=== PATIENT | female | born 1940 | race Native Hawaiian/Other Pacific Islander ===

== ENCOUNTER 2017-02-10 22:09 | Emergency (ER) | payer MEDICARE ==
[2017-02-10] MEDS ORDERED: ACETAMINOPHEN 325 MG TABLET PO STA (23:49)
[2017-02-10] MEDS ORDERED: ACETAMINOPHEN 325 MG TABLET PO ONE (23:51)
== END 2017-02-10 23:58 | disposition home or self-care (01) ==
DX: S93.491A Sprain of other ligament of right ankle, initial encounter (principal); W01.0XXA Fall on same level from slipping, tripping and stumbling without subsequent striking against object, initial encounter; Y92.488 Other paved roadways as the place of occurrence of the external cause; I10 Essential (primary) hypertension; E78.00 Pure hypercholesterolemia, unspecified; I25.10 Atherosclerotic heart disease of native coronary artery without angina pectoris; Z79.82 Long term (current) use of aspirin
CPT/HCPCS: 73610; 99282; A9270

== ENCOUNTER 2017-09-29 19:50 | Emergency (ER) | payer MEDICARE ==
[2017-09-29 20:07] VITALS: BP 158/79
[2017-09-29] MEDS ORDERED: LIDOCAINE 2%-EPI 1:100000 20 ML MDV ONE (20:55)
--- NOTE | 2017-09-29 21:39 | CT Preliminary Report ---
Exam: CT HEAD W/O IMPRESSION: Stable age-related cortical atrophic changes without evidence of acute intracranial abnor mality. [facility] SITE ID: [id number]
--- NOTE | 2017-09-29 21:41 | CT Report ---
EXAM: CT HEAD EXAM DATE: 09/29/2017 09:23 PM. CLINICAL HISTORY: Fall. Dementia. Head lac. Neck hardware. COMPARISON: 03/03/2016. TECHNIQUE: Multiaxial CT images were obtained from the foramen magnum to the vertex. IV contrast: Non e. Reformats: Coronal. In accordance with CT protocol optimization, one or more of the following dose reduction techniques w ere utilized for this exam: automated exposure control, adjustment of mA and/or KV based on patient s ize, or use of iterative reconstructive technique. FINDINGS: Parenchyma: No intraparenchymal hemorrhage. No evidence of mass, midline shift, or CT findings of acu te infarction. Iyer-white differentiation is distinct. Stable mild chronic microangiopathic white mat ter changes are evident. Extraaxial Spaces: Normal for age. No subdural or epidural collections identified. Ventricles: The ventricles and cortical sulci are enlarged, consistent with age-related tissue loss. Sinuses and orbits: Mucosal thickening in the paranasal sinuses. No air-fluid levels. The mastoids ar e clear. Bones: No evidence of fracture or calvarial defect. Other: None. IMPRESSION: Stable age-related cortical atrophic changes without evidence of acute intracranial abnor mality. [facility] Referring Provider Line: [phone] SITE ID: [id number]
--- NOTE | 2017-09-29 21:45 | CT Preliminary Report ---
Exam: CT CERVICAL SPINE W/O IMPRESSION: 1. No acute cervical spine abnormalities. 2. 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 [facility] SITE ID: [id number]
--- NOTE | 2017-09-29 21:48 | CT Report ---
EXAM: CT CERVICAL SPINE WITHOUT CONTRAST DATE: 09/29/2017 09:23 PM. HISTORY: Fall. Dementia. Head lac. Neck hardware.. COMPARISONS: 10/03/2007. TECHNIQUE: Thin-section axial images were acquired of the cervical spine without contrast. Post-proce ssing: Coronal and sagittal reformats. Other: None. In accordance with CT protocol optimization, one or more of the following dose reduction techniques w ere utilized for this exam: automated exposure control, adjustment of mA and/or KV based on patient s ize, or use of iterative reconstructive technique. FINDINGS: Alignment: Normal. No scoliosis or spondylolisthesis. Bones: acute traumatic or destructive bone abnormalities. Stable advanced calcification of the shift lab technician ior longitudinal ligament, C3 to C7, with interval laminectomies and posterior fusion from C2-T2. Interspace Levels/Facets: Stable disk spaces and interval fusion across multiple facets. Musculature: Normal. No fatty atrophy. Other: The paravertebral and prevertebral soft tissues are normal. IMPRESSION: 1. No acute cervical spine abnormalities. 2. 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 [facility] Referring Provider Line: [phone] SITE ID: [id number]
--- NOTE | 2017-09-29 21:52 | ED Physician Documentation ---
PD HPI HEAD INJURY - Stated complaint Stated Complaint: LAC TO FOREHEAD - Chief complaint Chief Complaint: Laceration - History obtained from History obtained from: Patient, Family - History of Present Illness Mechanism of head injury: Fell Where head injury occurred: Home Timing - onset: Today Location of injury: Right, Front Quality of pain: Pain, Aching Associated symptoms: No: LOC, Nausea / vomiting Contributing factors: No: Intoxicated Similar symptoms before: Has not had sx before Recently seen: Not recently seen - Additional information Additional information: Patient is a 77 year old female with a history of dementia who is presenting to the emergency department for fall and head laceration. According to the son, the patient stood up and then fell, hitting her head on way down. Patient is on aspirin and had had spinal fusion in the past. Review of Systems Unable to obtain: Dementia PD PAST MEDICAL HISTORY - Past Medical History Cardiovascular: Hypertension, High cholesterol, Coronary artery disease - Past Surgical History Past Surgical History: Yes Ortho: Spine surgery Cardiovascular: Coronary stent - Present Medications Home Medications: Ambulatory Orders Medication Instructions Recorded Confirmed Aspirin [Aspir 81] 81 mg PO DAILY 08/13/14 08/13/14 Metoprolol Tartrate 12.5 mg PO BID 08/13/14 08/13/14 Simvastatin 40 mg PO DAILY 08/13/14 08/13/14 - Allergies Allergies/Adverse Reactions: Allergies Allergy/AdvReac Type Severity Reaction Status Date / Time No Known Drug Allergies Allergy Verified 09/29/17 20:07 - Social History Does the pt smoke?: No Smoking Status: Never smoker Does the pt drink ETOH?: No Does the pt have substance abuse?: No - Immunizations Immunizations are current?: Yes PD ED PE NORMAL - Vitals Vital signs reviewed: Yes - General General: No acute distress - HEENT HEENT: PERRL, Moist mucous membranes, Dentition benign - Neck Neck: Supple, no meningeal sign, Other (prior surgical scars) - Cardiac Cardiac: RRR, No murmur - Respiratory Respiratory: No respiratory distress - Abdomen Abdomen: Non distended - Extremities Extremities: No deformity, No tenderness to palpate - Neuro Neuro: No motor deficit, No sensory deficit Eye Opening: Spontaneous Motor: Obeys Commands Verbal: Confused GCS Score: 14 - Psych Psych: Normal mood PD ED PE EXPANDED - HEENT HEENT: Head injury (2cm laceration on right forehead) Results - Vitals Vitals: Vital Signs - 24 hr 09/29/17 20:03 Temperature 36.7 C Heart Rate 73 Respiratory 20 Rate Blood Pressure 158/79 H O2 Saturation 96 Oxygen O2 Source Room air - Rads (name of study) ct head Radiology: Final report received (no acute intracranial pathology) ct cervical spine Radiology: Final report received (no acute process), See rad report Procedures - Laceration (location) right face Length in cm: 2 Wound type: Linear Neurovascular status: Sensory intact, Vascular intact Anesthesia: Lidocaine 2% with epi Wound Preparation: Irrigated copiously NS Skin layer closure: Prolene, Size #-0 - enter number (6), Sutures - enter # (3) Other: Patient tolerated well, No complications, Tetanus UTD Complexity: Simple PD MEDICAL DECISION MAKING - ED course Complexity details: reviewed old records, reviewed results, re-evaluated patient , considered differential, d/w patient, d/w family ED course: Patient was seen and examined at bedside. Imaging was ordered and lac was repaired. Patient was sent for imaging. when patient returned the results were reviewed. there were no acute fractures or dislocations or acute intracranial pathology. Patient required no further work up and was stable for discharge with outpatient follow up. Departure - Departure Disposition: 01 Home, Self Care Clinical Impression: Laceration Condition: Good Instructions: ED Laceration Facial Sutr Tape Follow-Up: Sarath Viramontes MD [Primary Care Provider] - Within 1 week Comments: Your diagnostics today were within normal limits. there was no fracture, dislocation or acute intracranial pathology. You will need to keep the lacerations clean and dry. You can apply topical antibiotics. you should follow up with your doctor in a week for suture removal. You can give motrin or tylenol as needed for pain. You may return to the emergency department at any time for new, worsening or uncontrollable symptoms. Discharge Date/Time: 09/29/17 22:09
== END 2017-09-29 22:09 | disposition home or self-care (01) ==
LOC: ED 19:50
DX: S01.81XA Laceration without foreign body of other part of head, initial encounter (principal); W18.30XA Fall on same level, unspecified, initial encounter; W22.09XA Striking against other stationary object, initial encounter; Y93.89 Activity, other specified; Y92.009 Unspecified place in unspecified non-institutional (private) residence as the place of occurrence of the external cause; F03.90 Unspecified dementia, unspecified severity, without behavioral disturbance, psychotic disturbance, mood disturbance, and anxiety; I25.10 Atherosclerotic heart disease of native coronary artery without angina pectoris; I10 Essential (primary) hypertension; Z95.5 Presence of coronary angioplasty implant and graft; Z79.82 Long term (current) use of aspirin
CPT/HCPCS: 12011; 70450; 72125; 99283; 99284

== ENCOUNTER 2017-12-24 21:53 | Emergency (ER) | payer MEDICARE ==
--- NOTE | 2017-12-24 22:14 | ED Physician Documentation ---
History of Present Illness - Stated complaint Stated Complaint: GLF-L SHOULDER PX - Chief complaint Chief Complaint: General - History obtained from History obtained from: Family (daughter in law) - History of Present Illness Timing: Today (Demented 77 yo usually uses walker. Unwitnessed fall today. Unclear if any injuries, poss arm pain?) Review of Systems Unable to obtain: Dementia PD PAST MEDICAL HISTORY - Past Medical History Past Medical History: Yes Cardiovascular: Hypertension, High cholesterol, Coronary artery disease Respiratory: None Neuro: CVA Endocrine/Autoimmune: None GI: None SPOUT LINER: None : None HEENT: Other Psych: None Musculoskeletal: None Derm: None Other Past Medical History: USES WALKER W/ AMBULATION... - Past Surgical History Past Surgical History: Yes Ortho: Spine surgery Cardiovascular: Coronary stent - Present Medications Home Medications: Ambulatory Orders Medication Instructions Recorded Confirmed Aspirin [Aspir 81] 81 mg PO DAILY 08/13/14 08/13/14 Metoprolol Tartrate 12.5 mg PO BID 08/13/14 08/13/14 Simvastatin 40 mg PO DAILY 08/13/14 08/13/14 - Allergies Allergies/Adverse Reactions: Allergies Allergy/AdvReac Type Severity Reaction Status Date / Time No Known Drug Allergies Allergy Verified 12/24/17 22:06 - Social History Does the pt smoke?: No Smoking Status: Never smoker Does the pt drink ETOH?: No Does the pt have substance abuse?: No - Immunizations Immunizations are current?: Yes - POLST Patient has POLST: No PD ED PE NORMAL - General General: Other (She is alert and cooperative, but basically nonverbal, she does follow commands.) - HEENT HEENT: PERRL, EOMI - Neck Neck: Other (Mild upper C-spine tenderness and I do see her grab her neck once looking like she is in pain) - Cardiac Cardiac: RRR, No murmur - Respiratory Respiratory: No respiratory distress, Clear bilaterally - Abdomen Abdomen: Non tender - Back Back: No CVA TTP, No spinal TTP - Extremities Extremities: Other (I am able to range both of her shoulders elbows and wrists without any pain, I able to ambulate her, she has a slow gait but in no apparent pain.) - Neuro Neuro: No motor deficit Eye Opening: Spontaneous Motor: Obeys Commands Verbal: Incomprehensible GCS Score: 12 Results - Vitals Vitals: Vital Signs - 24 hr 02/09/18 22:02 Temperature 36.2 C L Heart Rate 96 Respiratory 17 Rate Blood Pressure 144/94 H O2 Saturation 97 Oxygen O2 Source Room air - Rads (name of study) Ct Head Radiology: EMP read contemporaneously (atrophy NAD) Ct C spine Radiology: EMP read contemporaneously (posterior fusion., NAD) B 1v [facility] Radiology: EMP read contemporaneously (NAD) PD MEDICAL DECISION MAKING - ED course ED course: The patient and family were counseled as to the diagnosis and need for follow- up. I counseled the patient with regard to signs and symptoms that would necessitate an urgent reevaluation in the emergency department. They understand they are welcome to return at any time if worse or if not improving as expected. This document was made in part using voice recognition software. While efforts are made to proofread this documents, sound alike and grammatical errors may occur. Departure - Departure Disposition: 01 Home, Self Care Clinical Impression: Neck pain Fall Qualifiers: Encounter type: initial encounter Qualified Code(s): W19.XXXA - Unspecified fall, initial encounter Dementia Qualifiers: Dementia type: unspecified type Dementia behavioral disturbance: without behavioral disturbance Qualified Code(s): F03.90 - Unspecified dementia without behavioral disturbance Right shoulder strain Qualifiers: Encounter type: initial encounter Qualified Code(s): S46.911A - Strain of unspecified muscle, fascia and tendon at shoulder and upper arm level, right arm , initial encounter Left shoulder strain Qualifiers: Encounter type: initial encounter Qualified Code(s): S46.912A - Strain of unspecified muscle, fascia and tendon at shoulder and upper arm level, left arm , initial encounter Condition: Good Record reviewed to determine appropriate education?: Yes Instructions: ED Dementia Caregiver Support Comments: Recheck with your physician in 1 week if any areas are persistently painful, return if worse, Tylenol as needed for pain. Your blood pressure was elevated today on check into the emergency department. This does not mean that you have hypertension, it is a common phenomenon to come to the emergency department and have elevated blood pressure. I recommend that you see your primary care physician within the week to have it rechecked when you are feeling better.
--- NOTE | 2017-12-24 23:10 | CT Preliminary Report ---
Exam: CT HEAD W/O IMPRESSION: Generalized age-related cortical atrophic changes without evidence of acute intracranial abnormality. [facility] SITE ID: [id number]
--- NOTE | 2017-12-24 23:13 | CT Report ---
EXAM: CT HEAD EXAM DATE: 12/24/2017 10:48 PM. CLINICAL HISTORY: Neck pain, fall. COMPARISON: Brain CT from 09/29/2017. TECHNIQUE: Multiaxial CT images were obtained from the foramen magnum to the vertex. Reformats: Coron al. IV contrast: None. In accordance with CT protocol optimization, one or more of the following dose reduction techniques w ere utilized for this exam: automated exposure control, adjustment of mA and/or KV based on patient s ize, or use of iterative reconstructive technique. FINDINGS: Parenchyma: No intraparenchymal hemorrhage. No evidence of mass, midline shift, or CT findings of acu te infarction. Iyer-white differentiation is distinct. Mild diffuse chronic microangiopathic white ma tter changes are evident. Extraaxial Spaces: No acute subdural or epidural collections identified. Ventricles: The ventricles and cortical sulci are moderately enlarged, consistent with age-related ti ssue loss. Sinuses and orbits: A new small air-fluid is suggested in the right sphenoid sinus. The orbits and ma stoid sinuses are unremarkable. Bones: No evidence of fracture or calvarial defect. Other: Mild intracranial atherosclerosis is noted. IMPRESSION: Generalized age-related cortical atrophic changes without evidence of acute intracranial abnormality. [facility] Referring Provider Line: [phone] SITE ID: [id number]
--- NOTE | 2017-12-24 23:18 | XRAY Preliminary Report ---
Exam: XR SHOULDER 1 VIEW BILAT IMPRESSION: 1. No dislocation or acute fracture. Comment: NONSTANDARD TECHNIQUE FOR EVALUATION OF SHOULDER PAIN AFTER FALL. [facility] SITE ID: [id number]
--- NOTE | 2017-12-24 23:22 | XRAY Report ---
Bilateral Shoulder Radiography EXAM DATE: 12/24/2017 10:57 PM. CLINICAL HISTORY: Shoulder pain. COMPARISON: None. TECHNIQUE: 1 views each. FINDINGS: Right: Bones: Normal. No fracture or bone lesion. Joints: No dislocation on this single view radiograph. Normal alignment of the right acromioclavicular and glenohumeral joint. Right acromioclavicular joint arthritis. Soft tissues: The visualized hemithorax is unremarkable. No soft tissue swelling. Left: Bones: Normal. No fracture or bone lesion. Joints: No dislocation on this single view radiograph. Normal alignment of the left acromioclavicular and glenohumeral joint. Left acromioclavicular joint a rthritis. Soft tissues: The visualized hemithorax is unremarkable. No soft tissue swelling. IMPRESSION: 1. No dislocation or acute fracture. Comment: NONSTANDARD TECHNIQUE FOR EVALUATION OF SHOULDER PAIN AFTER FALL. [facility] Referring Provider Line: [phone] SITE ID: [id number]
[2017-12-24] MEDS ORDERED: ACETAMINOPHEN 325 MG TABLET PO STA (23:57)
--- NOTE | 2017-12-24 23:59 | CT Preliminary Report ---
Exam: CT CERVICAL SPINE W/O IMPRESSION: 1. No acute cervical spine fracture or malalignment. 2. Stable extensive postoperative changes throughout the cervical spine with laminectomies and value stream manager ior fusion due to prominent auscultation of the posterior longitudinal ligament. These findings are s table compared to the cervical spine CT from 09/29/2017. [facility] SITE ID: [id number]
--- NOTE | 2017-12-25 00:05 | CT Report ---
EXAM: CT CERVICAL SPINE WITHOUT CONTRAST DATE: 12/24/2017 10:49 PM. HISTORY: Fall, neck pain. COMPARISONS: Cervical spine CT from 09/29/2017. TECHNIQUE: Thin-section axial images were acquired of the cervical spine without contrast. Post-proce ssing: Coronal and sagittal reformats. Other: None. In accordance with CT protocol optimization, one or more of the following dose reduction techniques w ere utilized for this exam: automated exposure control, adjustment of mA and/or KV based on patient s ize, or use of iterative reconstructive technique. FINDINGS: Alignment: The normal cervical lordosis remain straighten, related to prior surgery. There is no spon dylolisthesis or scoliosis. Bones: No acute cervical spine fracture is identified. Prominent ossification of the posterior longit udinal ligament is again demonstrated from C3 through C7. Dorsal decompression is seen from C4 throug h C7. Posterior spinal fusion from C2 though T2 is stable in appearance without evidence of hardware failure or loosening. Interspace Levels/Facets: C1-C2: Moderate degenerative changes are present anteriorly without craniocervical stenosis. These fi ndings are stable. C2-C3: The spinal canal and foramina are patent. C3-C4: The spinal canal is decompressed. The foramina are patent. C4-C5: The spinal canal is decompressed. The foramina are patent. C5-C6: The spinal canal is decompressed. The foramina are patent. C6-C7: The spinal canal is decompressed. The foramina are patent. C7-T1: Unremarkable. Musculature: Postsurgical changes with moderate to severe diffuse fatty atrophy of the posterior par aspinal muscles is noted. Other: The paravertebral and prevertebral soft tissues are unremarkable. Moderate emphysematous holly es are again noted in the lung apices. IMPRESSION: 1. No acute cervical spine fracture or malalignment. 2. Stable extensive postoperative changes throughout the cervical spine with laminectomies and operations planner ior fusion due to prominent ossification of the posterior longitudinal ligament. These findings are s table compared to the cervical spine CT from 09/29/2017. [facility] Referring Provider Line: [phone] SITE ID: [id number]
[2017-12-25 00:26] VITALS: BP 140/89
== END 2017-12-25 00:26 | disposition home or self-care (01) ==
LOC: ED 21:53
DX: M54.2 Cervicalgia (principal); F03.90 Unspecified dementia, unspecified severity, without behavioral disturbance, psychotic disturbance, mood disturbance, and anxiety; S46.911A Strain of unspecified muscle, fascia and tendon at shoulder and upper arm level, right arm, initial encounter; S46.012A Strain of muscle(s) and tendon(s) of the rotator cuff of left shoulder, initial encounter; W19.XXXA Unspecified fall, initial encounter; I25.10 Atherosclerotic heart disease of native coronary artery without angina pectoris; I10 Essential (primary) hypertension; E78.00 Pure hypercholesterolemia, unspecified; Z86.73 Personal history of transient ischemic attack (TIA), and cerebral infarction without residual deficits; Z95.5 Presence of coronary angioplasty implant and graft
CPT/HCPCS: 70450; 72125; 73020; 99283; A9270

== ENCOUNTER 2018-04-22 12:29 | Outpatient (CLI) | payer MEDICARE | END 2018-04-22 12:30 | disposition home or self-care (01) | LOC: LAB 12:29 | PROVIDERS: ATTEND Internal Medicine | DX: R89.5 Abnormal microbiological findings in specimens from other organs, systems and tissues (principal); F03.90 Unspecified dementia, unspecified severity, without behavioral disturbance, psychotic disturbance, mood disturbance, and anxiety | CPT/HCPCS: 36415; 81599; 86592; 86780 ==

== ENCOUNTER 2018-05-13 09:41 | Outpatient (CLI) | payer MEDICARE | END 2018-05-13 09:42 | disposition critical access hospital (66) | LOC: EMS 09:41 | PROVIDERS: ATTEND Surgery | DX: S89.91XA Unspecified injury of right lower leg, initial encounter (principal); W10.9XXA Fall (on) (from) unspecified stairs and steps, initial encounter | CPT/HCPCS: A0425; A0429 ==

== ENCOUNTER 2018-05-13 10:05 | Emergency (ER) | payer MEDICARE ==
[2018-05-13 10:16] VITALS: BP 135/84
--- NOTE | 2018-05-13 10:26 | ED Physician Documentation ---
History of Present Illness - Stated complaint Stated Complaint: GLF - Chief complaint Chief Complaint: Ext Problem - Additonal information Additional information: hx from EMS per EMS pt lives at home with family and has dementia she was unattended for a mere 2 min and fell down 2 stairs with her walker unknown cause of fall or how she landed pt cannot state where she hurts or if she hit her head seem to be holding her RLE Review of Systems Unable to obtain: Dementia PD PAST MEDICAL HISTORY - Past Medical History Cardiovascular: Hypertension, High cholesterol, Coronary artery disease Respiratory: None Endocrine/Autoimmune: None GI: None PUBLIC 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: None : None HEENT: Other Psych: None Musculoskeletal: None Derm: None - Past Surgical History Past Surgical History: Yes Ortho: Spine surgery Cardiovascular: Coronary stent - Present Medications Home Medications: Ambulatory Orders Medication Instructions Recorded Confirmed Aspirin [Aspir 81] 81 mg PO DAILY 08/13/14 08/13/14 Metoprolol Tartrate 12.5 mg PO BID 08/13/14 08/13/14 Simvastatin 40 mg PO DAILY 08/13/14 08/13/14 - Allergies Allergies/Adverse Reactions: Allergies Allergy/AdvReac Type Severity Reaction Status Date / Time No Known Drug Allergies Allergy Verified 05/13/18 10:16 - Social History Does the pt smoke?: No Smoking Status: Never smoker Does the pt drink ETOH?: No Does the pt have substance abuse?: No - Immunizations Immunizations are current?: Yes - POLST Patient has POLST: No PD ED PE NORMAL - Vitals Vital signs reviewed: Yes - General General: No: Alert and oriented X 3 - HEENT HEENT: Atraumatic, PERRL - Neck Neck: No bony TTP (but dementia and possible distracting injury so will need imaging after fall down stairs) - Cardiac Cardiac: RRR - Respiratory Respiratory: No respiratory distress, Clear bilaterally - Abdomen Abdomen: Soft, Non tender - Extremities Extremities: No deformity, Other (slightly shortened on R, hip femur knee tib/ fib ankle foot all NT, + cap refill and pedal pulse) - Neuro Neuro: No: Alert and oriented X 3 Eye Opening: Spontaneous Motor: Localizes to Pain Verbal: Confused GCS Score: 13 Results - Vitals Vitals: Vital Signs - 24 hr 05/13/18 10:12 Temperature 36.3 C L Heart Rate 73 Respiratory 18 Rate Blood Pressure 135/84 H O2 Saturation 96 Oxygen O2 Source Room air - Rads (name of study) CTH Radiology: See rad report (no fx mass shift bleed) CT CS Radiology: See rad report (no fx or listhesis) hip Radiology: See rad report (no fx) knee Radiology: See rad report (no fx) PD MEDICAL DECISION MAKING - Sepsis Event Vital Signs: Vital Signs - 24 hr 05/13/18 10:12 Temperature 36.3 C L Heart Rate 73 Respiratory 18 Rate Blood Pressure 135/84 H O2 Saturation 96 Oxygen O2 Source Room air Departure - Departure Disposition: 01 Home, Self Care Clinical Impression: Fall Qualifiers: Encounter type: initial encounter Qualified Code(s): W19.XXXA - Unspecified fall, initial encounter Knee sprain Qualifiers: Encounter type: initial encounter Involved ligament of knee: unspecified ligament Laterality: right Qualified Code(s): S83.91XA - Sprain of unspecified site of right knee, initial encounter Condition: Good Instructions: ED Sprain Knee Follow-Up: Chichi Morales MD [Primary Care Provider] - Comments: Thankfully the imaging did not show any significant injuries requiring admission , surgery, or a cast It seems to hurt most when the right knee is moved so I suspect you have sprained the knee in your fall. Recommend you wear an JAYLEEN wrap for support and apply ice for up to 20 min several times a day. Tylenol as needed for the pain If new areas start to hurt that were not intially apparent in your ER visit today, please come back to the ER or see you PMD
--- NOTE | 2018-05-13 12:03 | CT Report ---
Procedure Date: 05/13/2018 Accession Number: [id number] / [id number] Procedure: CT - Head W/O CPT Code: FULL RESULT: EXAM: CT HEAD EXAM DATE: 05/13/2018 11:23 AM. CLINICAL HISTORY: Fall down stairs, dementia. COMPARISON: Head CT dated 01/03/2018. TECHNIQUE: Multiaxial CT images were obtained from the foramen magnum to the vertex. Reformats: Coronal. IV contrast: None. In accordance with CT protocol optimization, one or more of the following dose reduction techniques were utilized for this exam: automated exposure control, adjustment of mA and/or KV based on patient size, or use of iterative reconstructive technique. FINDINGS: Parenchyma: No intraparenchymal hemorrhage. No evidence of mass, midline shift, or CT findings of infarction. Iyer-white differentiation is distinct. Extraaxial Spaces: Normal for age. No subdural or epidural collections identified. Ventricles: Normal in size and position. Sinuses and Orbits: Imaged paranasal sinuses, orbits, and mastoids show no significant abnormality. Bones: No evidence of fracture or calvarial defect. Other: None. IMPRESSION: No acute intracranial abnormality. [facility]
--- NOTE | 2018-05-13 12:06 | CT Report ---
Procedure Date: 05/13/2018 Accession Number: [id number] / [id number] Procedure: CT - Cervical Spine W/O CPT Code: FULL RESULT: EXAM: CT CERVICAL SPINE WITHOUT CONTRAST DATE: 05/13/2018 11:23 AM. HISTORY: Fell down stairs dementia. COMPARISONS: None. TECHNIQUE: Thin-section axial images were acquired of the cervical spine without contrast. Post-processing: Coronal and sagittal reformats. Other: None. In accordance with CT protocol optimization, one or more of the following dose reduction techniques were utilized for this exam: automated exposure control, adjustment of mA and/or KV based on patient size, or use of iterative reconstructive technique. FINDINGS: Alignment: No scoliosis or spondylolisthesis. Bones: No fracture or bone lesion. Interspace Levels/Facets: Posterior cervical fusion from C2-T2 without evidence of hardware failure or loosening. The alignment is near-anatomic. Musculature: Normal. No fatty atrophy. Other: The paravertebral and prevertebral soft tissues are unremarkable. The lung apices are clear. Calcification of the posterior ligament posterior to C3-C6. IMPRESSION: 1. No acute cervical spine fracture or listhesis. 2. Posterior cervical fusion from C2-T2 without evidence of hardware failure or loosening. [facility]
--- NOTE | 2018-05-13 12:08 | XRAY Report ---
Procedure Date: 05/13/2018 Accession Number: [id number] / [id number] Procedure: XR - Hip w/Pelvis 2-3V RT CPT Code: FULL RESULT: EXAM: RIGHT HIP AND PELVIS RADIOGRAPHY EXAM DATE: 05/13/2018 11:45 AM. HISTORY: Fell down stairs dementia. Pain in right hip and right knee COMPARISONS: None. TECHNIQUE: 1 view of the pelvis and 1 view of the hip. FINDINGS: Bones: Normal. No fracture or bone lesion. Joints: The bilateral hip, pubis symphysis, and sacroiliac joints are preserved. Soft Tissues: Normal. No soft tissue swelling. IMPRESSION: No fracture identified. RADIA
--- NOTE | 2018-05-13 12:09 | XRAY Report ---
Procedure Date: 05/13/2018 Accession Number: [id number] / [id number] Procedure: XR - Knee 4 View RT CPT Code: FULL RESULT: EXAM: RIGHT KNEE RADIOGRAPHY EXAM DATE: 05/13/2018 11:56 AM. CLINICAL HISTORY: Fell down stairs dementia. COMPARISON: None. TECHNIQUE: 3 views. FINDINGS: Bones: Normal. No fractures or bone lesions. Joints: Normal degenerative changes in the medial and lateral and patellofemoral compartments. Trace joint effusion. Soft Tissues: Normal. No soft tissue swelling. IMPRESSION: 1. No fracture. 2. Trace joint effusion. RADIA
== END 2018-05-13 14:52 | disposition home or self-care (01) ==
LOC: EDUNIT# → ED 10:05
DX: S83.91XA Sprain of unspecified site of right knee, initial encounter (principal); W10.9XXA Fall (on) (from) unspecified stairs and steps, initial encounter; Z91.81 History of falling; Y92.009 Unspecified place in unspecified non-institutional (private) residence as the place of occurrence of the external cause; I10 Essential (primary) hypertension; E78.00 Pure hypercholesterolemia, unspecified; I25.10 Atherosclerotic heart disease of native coronary artery without angina pectoris; F03.90 Unspecified dementia, unspecified severity, without behavioral disturbance, psychotic disturbance, mood disturbance, and anxiety; Z79.82 Long term (current) use of aspirin; Z95.5 Presence of coronary angioplasty implant and graft
CPT/HCPCS: 70450; 72125; 99283

== ENCOUNTER 2018-11-24 08:50 | Outpatient (CLI) | payer MEDICARE | END 2018-11-24 08:51 | disposition EMS.NT | LOC: EMS 08:50 | PROVIDERS: ATTEND Surgery | DX: Z03.89 Encounter for observation for other suspected diseases and conditions ruled out (principal); W19.XXXA Unspecified fall, initial encounter; Y92.009 Unspecified place in unspecified non-institutional (private) residence as the place of occurrence of the external cause ==

== ENCOUNTER 2019-01-06 15:12 | Outpatient (CLI) | payer MEDICARE | END 2019-01-06 15:13 | disposition EMS.NT | LOC: EMS 15:12 | PROVIDERS: ATTEND Surgery | DX: Z03.89 Encounter for observation for other suspected diseases and conditions ruled out (principal) ==

== ENCOUNTER 2019-01-30 07:38 | Outpatient (CLI) | payer MEDICARE | END 2019-01-30 07:39 | disposition EMS.NT | LOC: EMS 07:38 | PROVIDERS: ATTEND Surgery | DX: S09.90XA Unspecified injury of head, initial encounter (principal); W18.30XA Fall on same level, unspecified, initial encounter; Y92.009 Unspecified place in unspecified non-institutional (private) residence as the place of occurrence of the external cause ==

== ENCOUNTER 2019-01-30 08:27 | Emergency (ER) | payer MEDICARE ==
--- NOTE | 2019-01-30 08:45 | ED Physician Documentation ---
History of Present Illness - Stated complaint Stated Complaint: GLF/HEAD INJURY - Chief complaint Chief Complaint: Trauma Hd/Nk - History obtained from History obtained from: Family, Caregiver - History of Present Illness Timing: Prior to arrival - Additonal information Additional information: Patient is an 78-year-old female with history of hypertension, dementia, and mostly [place] speakingPresenting with her ufwjwwpw-md-kbr who is also her caregiver after a witnessed fall from ground-level just prior to arrival. Vogyqomq-mf-uoe provides history and states that patient was transitioning from the bed to her walker and slipped striking her head on the right side on a nightstand. Pdogyjzk-uu-bxe also believes patient may have bruised her left ye nd and scraped her right knee. Piwiktbp-am-gbh reports that patient was not complaining of anything at the time of fall and has otherwise been in her normal state of health recently with no significant changes, including pain complaints, vomiting, diarrhea, urinary changes. Patient is incontinent at baseline. Cjatjkhg-jj-jbr states no anticoagulation on board except for baby aspirin. Eiqxvran-ze-dph denies any particular improving or worsening symptoms to patient's condition.Rlaoloqm-eu-bji believes that tetanus is current. 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 HEENT: Other Psych: None Musculoskeletal: None Derm: None - Past Surgical History Past Surgical History: Yes Ortho: Spine surgery Cardiovascular: Coronary stent - Present Medications Home Medications: Ambulatory Orders Medication Instructions Recorded Confirmed Aspirin [Aspir 81] 81 mg PO DAILY 08/13/14 08/13/14 RX: Metoprolol Tartrate 12.5 mg PO BID 08/13/14 08/13/14 RX: Simvastatin 40 mg PO DAILY 08/13/14 08/13/14 - Allergies Allergies/Adverse Reactions: Allergies Allergy/AdvReac Type Severity Reaction Status Date / Time No Known Drug Allergies Allergy Verified 05/13/18 10:16 - Social History Does the pt smoke?: No Smoking Status: Never smoker Does the pt drink ETOH?: No Does the pt have substance abuse?: No - Immunizations Immunizations are current?: Yes - POLST Patient has POLST: No PD ED PE NORMAL - General General: No acute distress, Well developed/nourished - HEENT HEENT: Other (Atraumatic except for approximately 1-1/2 inch laceration to right occiput with mild active bleeding and otherwise uncomplicated.Fernando and EOMI.No evidence of intraoral or dental trauma.) - Neck Neck: Supple, no meningeal sign, No bony TTP - Cardiac Cardiac: RRR, No murmur - Respiratory Respiratory: No respiratory distress, Clear bilaterally - Abdomen Abdomen: Soft, Non tender, Non distended - Derm Derm: Normal color, Warm and dry, No rash, Other (Ecchymosis and superficial abrasion over right knee and left dorsum hand directly below third digit) - Extremities Extremities: No deformity, No tenderness to palpate, Normal ROM s pain - Neuro Neuro: No motor deficit, No sensory deficit, Other (No gross deficits noted, but patient minimally verbal and somewhat aggressive on occasion, which is baseline per her chyhelkw-vf-dtk.) Results - Vitals Vitals: Vital Signs - 24 hr 01/30/19 01/30/19 08:35 08:38 Temperature 37.4 C Heart Rate 69 Respiratory 14 Rate Blood Pressure 168/65 H 158/82 H O2 Saturation 98 Oxygen O2 Source Room air Procedures - Laceration (location) Scalp right Length in cm: 1.5 Wound type: Linear Neurovascular status: Sensory intact, Motor intact, Vascular intact Skin layer closure: Miah PD MEDICAL DECISION MAKING - ED course Complexity details: re-evaluated patient, considered differential, d/w patient, d/w family ED course: Patient with history of dementia presenting with her mhqgwxya-cm-hyi after accidental fall earlier today. Urcatkuy-wl-fnr adamantly denies particular inciting symptoms or recent illness and feel that this is likely an accidental, mechanical fall.Patient has large laceration to her right occiput which was appropriately cleaned and repaired without issue in the ED. Images obtained include CT head which returned unremarkable for intracranial injury, skull fracture, or other acute pathology. Plain films also obtained of right knee and left hand, which returned unremarkable except for possible fracture to the base of the third phalanx. Given clinical correlation, felt appropriate to place a finger splint. Remainder of physical exam relatively unremarkable and do not feel patient requires other invasive testing at this time. I will suspicion for other systemic illness or acute pathology. Discussed results and recommendations, including staple removal, suture care, return precautions, and appropriate follow-up with xmryzppk-qi-dmm, who voiced understanding and is comfortable with discharge plan. Departure - Departure Disposition: 01 Home, Self Care Clinical Impression: Laceration Phalanx, proximal fracture of finger Qualifiers: Encounter type: initial encounter Finger: middle finger Fracture type: closed Fracture alignment: nondisplaced Laterality: left Qualified Code(s): S62.643A - Nondisplaced fracture of proximal phalanx of left middle finger, initial encounter for closed fracture Condition: Fair Instructions: ED Fx Finger Closed, ED Laceration All Follow-Up: Chichi Morales MD [Primary Care Provider] - Within 3 Days Comments: Please continue all home medications as previously instructed. May use anti- inflammatories if allowed for pain control. Also recommend elevation and ice application to areas of discomfort and left hand or right knee. Please keep all abrasions clean and dry. Please return to ED, urgent care, your physician in 10 days for staple removal from scalp. Please follow-up with primary care physician next 2-3 days for reevaluation, particularly of left finger. Please keep splint in place until this time. Return to ED sooner if expands worsening symptoms or other concerns. Discharge Date/Time: 01/30/19 11:55
[2019-01-30 09:12] VITALS: BP 158/82
--- NOTE | 2019-01-30 09:38 | XRAY Report ---
Reason: fall with bruising Procedure Date: 01/30/2019 Accession Number: [id number] / [id number] Procedure: XR - Hand 3 View LT CPT Code: FULL RESULT: EXAM: LEFT HAND RADIOGRAPHY EXAM DATE: 01/30/2019 09:18 AM. CLINICAL HISTORY: Fall with bruising. COMPARISON: XR HAND MIN 3 VIEWS 10/03/2007 9:32 PM. TECHNIQUE: 3 views. FINDINGS: Bones: Possible fracture base of third phalanx ulnar side Joints: Osteophyte DIP joint Soft Tissues: Soft tissue swelling. IMPRESSION: Possible fracture third phalanx base RADIA
--- NOTE | 2019-01-30 09:40 | XRAY Report ---
Reason: fall wth abrasion Procedure Date: 01/30/2019 Accession Number: [id number] / [id number] Procedure: XR - Knee 3 View RT CPT Code: FULL RESULT: EXAM: RIGHT KNEE RADIOGRAPHY EXAM DATE: 01/30/2019 09:18 AM. CLINICAL HISTORY: Fall abrasion. COMPARISON: KNEE 4 VIEW RT 05/13/2018 11:22 AM. TECHNIQUE: 3 views. FINDINGS: Bones: Normal. No fractures or bone lesions. Joints: Osteophyte medial, lateral and patellofemoral compartment. Lateral joint space narrowing. No effusion Soft Tissues: Normal. No soft tissue swelling. IMPRESSION: Moderate DJD RADIA
--- NOTE | 2019-01-30 09:41 | CT Report ---
Reason: ground level fall with lac Procedure Date: 01/30/2019 Accession Number: [id number] / [id number] Procedure: CT - HEAD WO CPT Code: FULL RESULT: EXAM: CT HEAD EXAM DATE: 01/30/2019 09:26 AM. CLINICAL HISTORY: Ground level fall with lac. COMPARISON: HEAD W/O 05/13/2018 11:17 AM. TECHNIQUE: Multiaxial CT images were obtained from the foramen magnum to the vertex. Reformats: Sagittal and coronal. IV contrast: None. In accordance with CT protocol optimization, one or more of the following dose reduction techniques were utilized for this exam: automated exposure control, adjustment of mA and/or KV based on patient size, or use of iterative reconstructive technique. FINDINGS: Parenchyma: No intraparenchymal hemorrhage. No evidence of mass, midline shift, or CT findings of acute infarction. Iyer-white differentiation is distinct. Diffuse chronic microangiopathic white matter changes are evident. Extraaxial Spaces: Normal for age. No subdural or epidural collections identified. Ventricles: The ventricles and cortical sulci are enlarged, consistent with age-related tissue loss. Sinuses and orbits: Imaged paranasal sinuses, orbits, and mastoids show no significant abnormality. Bones: No evidence of fracture or calvarial defect. Limited, partial demonstration of cervical spine posterior surgical fusion. Other: Right parietal region scalp hematoma and small foci of gas, consistent with laceration. IMPRESSION: 1. Generalized age-related cortical atrophic changes without evidence of acute intracranial abnormality. 2. Right parietal scalp laceration and hematoma. RADIA
== END 2019-01-30 11:55 | disposition home or self-care (01) ==
LOC: ED 08:27
DX: S01.01XA Laceration without foreign body of scalp, initial encounter (principal); S62.643A Nondisplaced fracture of proximal phalanx of left middle finger, initial encounter for closed fracture; W01.190A Fall on same level from slipping, tripping and stumbling with subsequent striking against furniture, initial encounter; Y93.89 Activity, other specified; Y92.003 Bedroom of unspecified non-institutional (private) residence as the place of occurrence of the external cause; I10 Essential (primary) hypertension; F03.90 Unspecified dementia, unspecified severity, without behavioral disturbance, psychotic disturbance, mood disturbance, and anxiety
CPT/HCPCS: 12001; 70450; 99281; 99283

== ENCOUNTER 2019-03-10 12:36 | Outpatient (CLI) | payer MEDICARE | END 2019-03-10 12:37 | disposition critical access hospital (66) | LOC: EMS 12:36 | PROVIDERS: ATTEND Surgery | DX: S01.91XA Laceration without foreign body of unspecified part of head, initial encounter (principal); W18.30XA Fall on same level, unspecified, initial encounter; Y92.009 Unspecified place in unspecified non-institutional (private) residence as the place of occurrence of the external cause | CPT/HCPCS: A0425; A0429 ==

== ENCOUNTER 2019-03-10 12:47 | Emergency (ER) | payer MEDICARE ==
[2019-03-10] MEDS ORDERED: BUFFERED LIDOCAINE 10 ML SYRINGE SUBQ STA (13:07)
[2019-03-10] MEDS ORDERED: LIDOCAINE-EPINEPH-TETRACAINE 3 ML SYRINGE TOP STA (13:08)
--- NOTE | 2019-03-10 13:10 | ED Physician Documentation ---
PD HPI MAJOR TRAUMA - Stated complaint Stated Complaint: GLF - Chief complaint Chief Complaint: Trauma Hd/Nk - History obtained from History obtained from: Family, EMS - History of Present Illness Mechanism of injury: Fell (78-year-old woman presents by EMs after a fall. All of the history is from the family due to severe dementia. She gotten up from the couch and basically fell forward without loss of consciousness hitting the floor in the kitchen. There are lacerations about the scalp and potentially a left hand injury. 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 : None HEENT: Other Psych: None Musculoskeletal: None Derm: None - Past Surgical History Past Surgical History: Yes Ortho: Spine surgery Cardiovascular: Coronary stent - Present Medications Home Medications: Ambulatory Orders Medication Instructions Recorded Confirmed Aspirin [Aspir 81] 81 mg PO DAILY 08/13/14 08/13/14 RX: Metoprolol Tartrate 12.5 mg PO BID 08/13/14 08/13/14 RX: Simvastatin 40 mg PO DAILY 08/13/14 08/13/14 Nitrofurantoin Monohyd/M-Cryst 100 mg PO BID #10 capsule 03/10/19 [Macrobid 100 mg Capsule] - Allergies Allergies/Adverse Reactions: Allergies Allergy/AdvReac Type Severity Reaction Status Date / Time No Known Drug Allergies Allergy Verified 05/13/18 10:16 - Social History Does the pt smoke?: No Smoking Status: Never smoker Does the pt drink ETOH?: No Does the pt have substance abuse?: No - Immunizations Immunizations are current?: Yes - POLST Patient has POLST: No PD ED PE NORMAL - Vitals Vital signs reviewed: Yes - General General: Other (She is alert and cooperative but minimally verbal. Does not answer questions. This is her baseline per the family.) - HEENT HEENT: PERRL, Other (Several lacerations about the scalp, one mid anterior scalp above the hairline and looks like one on either parietal area which will be addressed after c-collar has been removed.) - Neck Neck: No bony TTP (Maintained in a c-collar given severe dementia) - Cardiac Cardiac: RRR, No murmur - Respiratory Respiratory: No respiratory distress, Clear bilaterally - Abdomen Abdomen: Soft, Non tender - Derm Derm: Normal color, Warm and dry - Extremities Extremities: Other (There is a little abrasion over the PIP of the fourth digit on the left and she is holding it funny but does not seem tender there. Hips knees and ankles are all nontender.) - Neuro Neuro: registered nurse cardiac 2-12 intact Eye Opening: Spontaneous Motor: Localizes to Pain Verbal: Inappropriate GCS Score: 12 Results - Vitals Vitals: Vital Signs - 24 hr 03/10/19 03/10/19 03/10/19 12:48 15:06 16:28 Temperature 36 C L Heart Rate 62 59 L 83 Respiratory 14 14 16 Rate Blood Pressure 131/119 H 124/110 H 169/88 H O2 Saturation 96 95 100 Oxygen O2 Source Room air - Labs Labs: Laboratory Tests 03/10/19 14:20 Urine Color YELLOW Urine Clarity HAZY Urine pH 7.0 Ur Specific [place] 1.010 Urine Protein NEGATIVE Urine Glucose (UA) NEGATIVE Urine Ketones NEGATIVE Urine Occult Blood NEGATIVE Urine Nitrite NEGATIVE Urine Bilirubin NEGATIVE Urine Urobilinogen 0.2 (NORMAL) Ur Leukocyte Esterase NEGATIVE Urine RBC None Seen Urine WBC 0-3 Ur Squamous Epith Cells NONE SEEN Urine Bacteria Moderate H Ur Microscopic Review INDICATED Urine Culture Comments INDICATED - Rads (name of study) CT Head and Cspine Radiology: EMP read contemporaneously (Chronic asymmetric prominence of 1 of the ventricles, no acute disease in the head or neck.) L hand 3v Radiology: EMP read contemporaneously (NAD) Procedures - Laceration (location) Anterior scalp Length in cm: 3 Wound type: Linear Anesthesia: Lidocaine 1%, With bicarb Wound Preparation: Irrigated copiously NS Skin layer closure: Miah Other: Tetanus UTD Complexity: Simple R parietal Length in cm: 5 Wound type: Curved, Into subcut fat Anesthesia: Lidocaine 1%, With bicarb Wound Preparation: Irrigated copiously NS Skin layer closure: Miah Other: Tetanus UTD Complexity: Simple PD MEDICAL DECISION MAKING - ED course ED course: This is an 78-year-old woman who presents after ground-level fall with scalp lacerations. CT of the head and neck were done without pertinent positive acute findings. She also had a scrape on the left fourth finger, it was pretty small in the x-ray with there was negative. Patient and family were unclear on last tetanus, but per our records here she has had one within the last 5 years. Prior to discharge she was able to ambulate but limping a little bit on the right knee and discharge was held and she was sent back for an x-ray of the right knee and also the hip (as a precaution- no hip TTP). She did not seem tender anywhere. Departure - Departure Disposition: 01 Home, Self Care Clinical Impression: Dementia, Fall, Neck pain, Scalp laceration, Bacteriuria Condition: Good Record reviewed to determine appropriate education?: Yes Instructions: ED Dementia Caregiver Support, ED Head Injury Closed, ED Laceration Scalp Stitch Or Stap Prescriptions: Nitrofurantoin Monohyd/M-Cryst [Macrobid 100 mg Capsule] 100 mg PO BID #10 capsule Comments: Come back for any signs of infection which would include: Redness, swelling, drainage, increased pain, or fevers. Follow-up with your physician in 7-10 days for staple removal. We will culture your urine, the results should be done in 48-72 hours. If an antibiotic change is necessary we will call you. Return if worse in the meantime, especially if you develop increasing flank pain, fevers, or cannot keep down the medication. Discharge Date/Time: 03/10/19 16:48
--- NOTE | 2019-03-10 14:01 | XRAY Report ---
Reason: hand inj Procedure Date: 03/10/2019 Accession Number: [id number] / [id number] Procedure: XR - Hand 3 View LT CPT Code: FULL RESULT: EXAM: LEFT HAND RADIOGRAPHY EXAM DATE: 03/10/2019 01:43 PM. CLINICAL HISTORY: Hand injury. COMPARISON: HAND 3 VIEW LT 01/30/2019 9:01 AM. TECHNIQUE: 3 views. FINDINGS: Bones: Normal. No fractures or bone lesions. Joints: Mild to moderate degenerative changes at the first metacarpophalangeal joint. Soft Tissues: The known laceration is not well seen. No radiopaque foreign body is identified. IMPRESSION: No underlying fracture or dislocation and no definite radiopaque foreign body. RADIA
[2019-03-10 14:45] LABS: BILIRUBIN,URINE NEGATIVE (NEGATIVE); GLUCOSE, URINE (UA) NEGATIVE (NEGATIVE); KETONES,URINE (UA) NEGATIVE (NEGATIVE); LEUKOCYTE ESTERASE, URINE NEGATIVE (NEGATIVE); NITRITE,URINE NEGATIVE (NEGATIVE); OCCULT BLOOD,URINE NEGATIVE (NEGATIVE); PROTEIN,URINE NEGATIVE (NEGATIVE); UROBILINOGEN,URINE 0.2 (NORMAL) E.U./dL (NORMAL)
[2019-03-10 14:49] LABS: CLARITY,URINE HAZY (CLEAR)
[2019-03-10 14:52] LABS: BACTERIA,URINE Moderate /HPF (None Seen); RBC,URINE None Seen /HPF (0-5); SQUAMOUS EPITHELIAL CELL,UR NONE SEEN (<= Few)
--- NOTE | 2019-03-10 14:53 | CT Report ---
Reason: head inj, dementia Procedure Date: 03/10/2019 Accession Number: [id number] / [id number] Procedure: CT - HEAD WO CPT Code: FULL RESULT: EXAM: HEAD WO DATE: 03/10/2019 1:36 PM CLINICAL HISTORY: head inj, dementia COMPARISON: None. TECHNIQUE: Multiaxial CT images were obtained from the foramen magnum to the vertex. IV contrast: None. Reformats: Coronal. In accordance with CT protocol optimization, one or more of the following dose reduction techniques were utilized for this exam: automated exposure control, adjustment of mA and/or KV based on patient size, or use of iterative reconstructive technique. FINDINGS: Parenchyma: No intraparenchymal hemorrhage. There is mild unchanged mass effect from the prominent extra-axial space near the left vertex on the left frontoparietal cortex. No midline shift, or CT findings of infarction. Iyer-white differentiation is distinct. Extraaxial Spaces: Asymmetric prominence of the left extra-axial space near the vertex is stable compared to prior, isodense hygroma versus arachnoid cyst. Basal cisterns and ventricular systems appear preserved. Ventricles: Stable configuration. Sinuses: Imaged paranasal sinuses, orbits, and mastoids show no significant abnormality. Bones: No evidence of fracture or calvarial defect. Other: Extracranial soft tissue laceration near the right vertex. IMPRESSION: Stable examination with persistent asymmetric prominence of the CSF space near the left vertex with mild mass effect on the nearby cerebral cortex. No superimposed acute intracranial abnormality. RADIA
--- NOTE | 2019-03-10 14:58 | CT Report ---
Reason: head inj, dementia Procedure Date: 03/10/2019 Accession Number: [id number] / [id number] Procedure: CT - CERVICAL SPINE WO CPT Code: FULL RESULT: EXAM: CERVICAL SPINE WO DATE: 03/10/2019 1:36 PM CLINICAL HISTORY: head inj, dementia COMPARISON: None. TECHNIQUE: Thin-section axial images were acquired of the cervical spine without IV contrast. Post-processing: Coronal and sagittal reformats. Other: None. In accordance with CT protocol optimization, one or more of the following dose reduction techniques were utilized for this exam: automated exposure control, adjustment of mA and/or KV based on patient size, or use of iterative reconstructive technique. FINDINGS: Alignment: The atlantooccipital relationship is preserved. No scoliosis or spondylolisthesis. Bones: No fracture or bone lesion. Interspace Levels/Facets: The patient is status post posterior fusion of C2-C5 on C7-T2 with bilateral interconnecting rods spanning the C6 level. There is unchanged appearance of the at least partial osseous fusion of the visualized levels and no overt evidence of traumatic hardware failure. Spinal Canal: Spinous canal space is grossly preserved, evaluation for epidural hemorrhage is limited by streak artifact from the hardware. Musculature: No obvious hematoma. Other: Prevertebral and paravertebral soft tissues demonstrate no gross trauma. Lung apices demonstrate severe emphysema, interstitial thickening and apical scarring. The appearance is similar to the previous exam. IMPRESSION: Negative for acute osseous traumatic injury. RADIA
[2019-03-10] MEDS ORDERED: NITROFURANTOIN MACRO 100 MG CAPSULE PO STA (15:00)
[2019-03-10 16:28] VITALS: BP 169/88
--- NOTE | 2019-03-10 16:45 | XRAY Report ---
Reason: poss hip inj Procedure Date: 03/10/2019 Accession Number: [id number] / [id number] Procedure: XR - Hip w/Pelvis 2-3V RT CPT Code: FULL RESULT: EXAM: RIGHT HIP RADIOGRAPHY EXAM DATE: 03/10/2019 04:18 PM HISTORY: Possible hip inj. COMPARISONS: HIP W/PELVIS 2-3V RT 05/13/2018 11:22 AM. TECHNIQUE: 2 views. FINDINGS: Bones: Osteopenia is present. No acute fracture or dislocation visualized. Joints: Mild to moderate degenerative change, including joint space narrowing and acetabular osteophytic lipping. Soft Tissues: The proximal right thigh soft tissues appear swollen. IMPRESSION: Osteopenia. No fracture on radiographic imaging. Nonspecific soft tissue swelling of the proximal right thigh. Mild to moderate degenerative joint disease of the hips. Kellgren Zach Grade: 2. Note: Osteopenia can limit detection of trabecular fracture. If the patient cannot ambulate, recommend MRI hip to exclude occult fracture. RADIA
--- NOTE | 2019-03-10 16:48 | XRAY Report ---
Reason: knee inj Procedure Date: 03/10/2019 Accession Number: [id number] / [id number] Procedure: XR - Knee 4 View RT CPT Code: FULL RESULT: EXAM: RIGHT KNEE RADIOGRAPHY EXAM DATE: 03/10/2019 04:18 PM. CLINICAL HISTORY: Knee inj. COMPARISON: KNEE 3 VIEW RT 01/30/2019 9:01 AM. TECHNIQUE: 4 views. FINDINGS: Bones: The bones are osteopenic. No acute fracture or dislocation visualized. Small fabella in the popliteal fossa. Enthesophyte formation at the superior pole of the patella. Joints: No joint effusion. Redemonstrated tricompartmental joint space narrowing and small marginal osteophyte formation. Soft Tissues: Again seen is a nonspecific calcific density in the anterior right thigh musculature measuring 7 mm in diameter, which was present on the prior exam. Otherwise unremarkable. IMPRESSION: Osteopenia. No acute fracture or dislocation visualized. Tricompartmental degenerative joint disease. Kellgren Zach Grade 2. Kellgren and Zach classification of osteoarthritis: Grade 0: no radiographic features of osteoarthritis are present Grade 1: doubtful joint space narrowing (JSN) and possible osteophytic lipping Grade 2: definite osteophytes and possible JSN on anteroposterior weight-bearing radiograph Grade 3: multiple osteophytes, definite JSN, sclerosis, possible bony deformity Grade 4: large osteophytes, marked JSN, severe sclerosis and definite bony deformity RADIA
== END 2019-03-10 16:48 | disposition home or self-care (01) ==
LOC: EDUNIT# → ED 12:47
DX: S01.01XA Laceration without foreign body of scalp, initial encounter (principal); S60.415A Abrasion of left ring finger, initial encounter; M54.2 Cervicalgia; W18.30XA Fall on same level, unspecified, initial encounter; Y92.000 Kitchen of unspecified non-institutional (private) residence as the place of occurrence of the external cause; R82.71 Bacteriuria; F03.90 Unspecified dementia, unspecified severity, without behavioral disturbance, psychotic disturbance, mood disturbance, and anxiety; M17.11 Unilateral primary osteoarthritis, right knee; M16.0 Bilateral primary osteoarthritis of hip; M85.89 Other specified disorders of bone density and structure, multiple sites; I10 Essential (primary) hypertension; Z79.82 Long term (current) use of aspirin
CPT/HCPCS: 12004; 70450; 72125; 73130; 73502; 73564; 81001; 87086; 99283; 99284; A9270; 81003

== ENCOUNTER 2019-11-09 10:29 | Outpatient (CLI) | payer MEDICARE | END 2019-11-09 10:30 | disposition EMS.NT | LOC: EMS 10:29 | PROVIDERS: ATTEND Surgery | DX: Z03.89 Encounter for observation for other suspected diseases and conditions ruled out (principal) ==

== ENCOUNTER 2021-02-12 08:24 | Outpatient (CLI) | payer MEDICARE | END 2021-02-12 08:25 | disposition E | LOC: EMS 08:24 | DX: I46.9 Cardiac arrest, cause unspecified (principal) | CPT/HCPCS: A0425; A0429 ==